=== PATIENT | female | born 1950 ===

== ENCOUNTER 2018-12-16 09:46 | Day surgery (SDC) | payer OTHER ==
[2018-12-12 14:44] VITALS: BMI 34.7
[~2018-12-16 09:46] MED LIST: Lactated Ringer's 1,000 ML IV SCH
[2018-12-16] MEDS ORDERED: Propofol 10 mg/ml Inj (20 ML) ONE ×2 (11:09→11:25)
[2018-12-16 12:19] VITALS: PULSE 72
[2018-12-16 15:59] VITALS: RESP 18; TEMP 97.4; O2SAT 98
[2018-12-16 16:01] VITALS: BP 111/67
== END 2018-12-16 13:45 | disposition home or self-care (01) ==
LOC: ENDO 09:46
PROVIDERS: ATTEND Internal Medicine Gastroenterology
DX: Z12.11 Encounter for screening for malignant neoplasm of colon (principal); K21.0 Gastro-esophageal reflux disease with esophagitis; K29.70 Gastritis, unspecified, without bleeding; K64.1 Second degree hemorrhoids
CPT/HCPCS: 43239; 45378; 88305; 88312; 88342; J2001; J2704; J7120

== ENCOUNTER 2019-03-14 09:06 | Outpatient (CLI) | payer MEDICARE | END 2019-03-14 09:07 | disposition home or self-care (01) | LOC: RAD 09:06 | DX: Z12.31 Encounter for screening mammogram for malignant neoplasm of breast (principal) ==

== ENCOUNTER 2019-04-21 10:31 | Outpatient (CLI) | payer MEDICARE, MEDICAID | END 2019-04-21 10:32 | disposition home or self-care (01) | LOC: RAD 10:31 ==